=== PATIENT | female | born 1965 | race African-American/Black ===

== ENCOUNTER 2021-11-13 08:30 | Inpatient (IN) | payer BC, OTHER ==
[~2021-11-13] VITALS: Ht 175.3 cm; Wt 83.5 kg
[2021-11-13 09:12] LABS: HEMATOCRIT. 36.6 % (36.0-48.0); HEMOGLOBIN. 12.1 g/dL (12.0-16.0); MEAN CORPUSCULAR HEMOGLOBIN 25.1 pg (28.0-32.0); MEAN CORPUSCULAR VOLUME 76.1 fL (81.0-99.0); MEAN PLATELET VOLUME 8.7 fl (7.4-10.4); PLATELET 254 x1000/uL (130-400); RED BLOOD CELL COUNT 4.81 mill/uL (4.2-5.4)
[2021-11-13 09:18] LABS: CHLORIDE 108 mEq/L (98-107)
[2021-11-13] MEDS ORDERED: ACETAMINOPHEN 325MG TABLET PO STA (10:29)
[2021-11-13] MEDS ORDERED: MAGNESIUM/ALUMINUM HYDROXIDE/SIMETHICONE 30ML UDC PO STA (10:29)
[2021-11-13] MEDS ORDERED: VISCOUS LIDOCAINE 2% 15 ML UDC MM PRN (10:30)
[2021-11-13] MEDS ORDERED: FAMOTIDINE 20MG TABLET PO ONE (10:30)
[2021-11-13 11:00] LABS: CHLORIDE 108 mEq/L (98-107)
[2021-11-13 11:27] LABS: PLATELET ESTIMATE NORMAL
[2021-11-13] MEDS ORDERED: ONDANSETRON HCL 4MG TABLET PO ONE (11:30)
[2021-11-13] MEDS ORDERED: KETOROLAC 15MG/ML VIAL IV ONE (15:30)
[2021-11-14 00:45] VITALS: BP 144/62
[2021-11-14] MEDS ORDERED: CEFTRIAXONE 1 G PREMIX 50 ML IV SCH (02:00)
[2021-11-14] MEDS: CEFTRIAXONE 1,000 MG in DEXTROSE 5% WATER 50 ML IV SCH (04:31)
[2021-11-14] MEDS: DEXT 5%/0.45% NACL 1000ML 1,000 ML IV SCH ×3 (04:31→21:33)
[2021-11-14] MEDS ORDERED: LOSA1TAB34 MT (06:22)
[2021-11-14 08:00] VITALS: BP 132/78
[2021-11-14] MEDS: PANTOPRAZOLE SODIUM 40 MG/VIAL IV SCH (09:01)
[2021-11-14] MEDS: MORPHINE SULFATE 2 MG/ML CPJ (NOT FOR IM USE) IV PRN ×2 (09:01→16:36)
[2021-11-14 12:00] VITALS: BP 119/72
[2021-11-14] MEDS ORDERED: LOSA50TA41 MT (15:36)
[2021-11-14] MEDS ORDERED: AMLO10TA80 MT (15:36)
[2021-11-14 16:00] VITALS: BP 152/84
[2021-11-14] MEDS: LOSARTAN POTASSIUM 50 MG TABLET PO SCH (16:35)
[2021-11-14] MEDS: AMLODIPINE 10MG TABLET PO SCH (16:35)
[2021-11-14 20:00] VITALS: BP 132/66
[2021-11-15] VITALS: BP 150/75
[2021-11-15] MEDS: CEFTRIAXONE 1,000 MG in DEXTROSE 5% WATER 50 ML IV SCH (03:33)
[2021-11-15 04:00] VITALS: BP 131/43
[2021-11-15 07:52] LABS: BASOPHILS % 0.4 % (0.0-2.0); HEMATOCRIT. 37.5 % (36.0-48.0); HEMOGLOBIN. 12.2 g/dL (12.0-16.0); MEAN CORPUSCULAR HEMOGLOBIN 24.8 pg (28.0-32.0); MEAN CORPUSCULAR VOLUME 76.2 fL (81.0-99.0); MEAN PLATELET VOLUME 8.7 fl (7.4-10.4); MONOCYTES % 12.3 % (2.0-8.0); NEUTROPHILS % 51.3 % (40.0-76.0); PLATELET 272 x1000/uL (130-400); RED BLOOD CELL COUNT 4.92 mill/uL (4.2-5.4); RED CELL DISTRIBUTION WIDTH 14.2 % (11.6-14.6)
[2021-11-15 08:00] VITALS: BP 133/76
[2021-11-15 08:11] LABS: CHLORIDE 109 mEq/L (98-107)
[2021-11-15 08:18] LABS: HDL CHOLESTEROL 41 mg/dL (40-59); LDL CHOLESTEROL 88 mg/dL (5-100)
[2021-11-15] MEDS: LOSARTAN POTASSIUM 50 MG TABLET PO SCH (09:21)
[2021-11-15] MEDS: AMLODIPINE 10MG TABLET PO SCH (09:21)
[2021-11-15] MEDS: PANTOPRAZOLE SODIUM 40 MG/VIAL IV SCH (09:22)
[2021-11-15] MEDS: DEXT 5%/0.45% NACL 1000ML 1,000 ML IV SCH (09:22)
[2021-11-15] MEDS: MORPHINE SULFATE 2 MG/ML CPJ (NOT FOR IM USE) IV PRN (09:36)
[2021-11-15 12:00] VITALS: BP 160/84
[2021-11-15 16:00] VITALS: BP 133/82
[2021-11-15 17:51] VITALS: BP 133/82
[2021-11-16] MEDS ORDERED: FAMOTIDINE 20MG TABLET PO SCH (09:00)
== END 2021-11-15 18:31 | disposition home or self-care (01) | DRG 446 ==
LOC: ER 08:30 → 6WST 17:27 → EDBEDREQ 17:30 → EDBEDREQTM 17:30 → ENRESERV 23:29
PROVIDERS: ADMIT Internal Medicine; ATTEND Internal Medicine
DX: K80.20 Calculus of gallbladder without cholecystitis without obstruction (principal); I10 Essential (primary) hypertension; Z90.49 Acquired absence of other specified parts of digestive tract
CPT/HCPCS: 36415; 71045; 76705; 78227; 80048; 80053; 80061; 80076; 83605; 83880; 84484; 85025; 93005; 99285; A9537; C9113; J0696; J1885; J2270; J7060

== ENCOUNTER 2025-03-01 20:37 | Emergency (ER) | payer SELFPAY ==
[~2025-03-01] VITALS: Ht 175.3 cm; Wt 81.0 kg
[~2025-03-01 20:37] MED LIST: AMLO10TA80 MT; LOSA50TA41 MT
[2025-03-01 21:00] VITALS: O2SAT 100
[2025-03-01] MEDS ORDERED: KETO10TA2 MT (23:02)
[2025-03-01] MEDS: KETOROLAC 30MG/ML VIAL IM ONE (23:22)
[2025-03-01 23:28] VITALS: BP 142/79; PULSE 63; RESP 18; TEMP 37; O2SAT 100
== END 2025-03-01 23:54 | disposition home or self-care (01) ==
LOC: ER 20:37
DX: M79.641 Pain in right hand (principal); Z90.49 Acquired absence of other specified parts of digestive tract; Z79.899 Other long term (current) drug therapy; W01.10XA Fall on same level from slipping, tripping and stumbling with subsequent striking against unspecified object, initial encounter; Y93.89 Activity, other specified; Y92.512 Supermarket, store or market as the place of occurrence of the external cause; Y99.8 Other external cause status
CPT/HCPCS: 99283; 73130; 29125; 96372; J1885